=== PATIENT | female | born 1980 | race Caucasian/White ===

== ENCOUNTER 2019-09-30 13:53 | Emergency (ER) | payer OTHER ==
[2019-09-30 14:02] VITALS: BP 111/78; PULSE 106; RESP 18; TEMP 98.1
--- NOTE | 2019-09-30 14:26 | ED ---
Lower Extremity Injury HPI - General Chief Complaint: Extremity Injury, Lower Stated Complaint: left ankle injury Time Seen by Provider: 09/30/19 14:07 Source: patient Mode of arrival: wheelchair Limitations: no limitations - History of Present Illness Initial Comments: 39-year-old female presenting today for chief complaint of left ankle pain after fall. Patient states is prior to arrival she was walking falling off the porch she states she simply lost her balance and tripped. Patient states she extended her left leg to catch herself, she states that the ankle took most of the fall. She states she is not of any injuries or contact the ground with her head neck she denies any mid or lower back pain. Patient to the injury of the upper extremities. Patient denies any pain with anemia denies any hip pain. Patient states there is localized swelling over the lateral aspect of the left ankle with pain that radiates from the left side to the right of the ankle. Patient denies any bruising and no dislocation. Patient states she felt like she heard a crunch. Remaining review of system negative upon arrival patient refuses to weight-bear on the left extremity. Denies any other complaints or injuries. - Related Data Home Medications Medication Instructions Recorded Confirmed Ondansetron HCl [Zofran] 8 mg PO TID PRN 07/23/19 09/17/19 Butalb/APAP/Caff 50-325-40Mg 2 tab PO Q6H PRN 08/06/19 09/17/19 [Fioricet 50-325-40] Allergies Allergy/AdvReac Type Severity Reaction Status Date / Time Penicillins Allergy Unknown Verified 09/30/19 14:02 Review of Systems ROS Statement: Those systems with pertinent positive or pertinent negative responses have been documented in the HPI. ROS Other: All systems not noted in ROS Statement are negative. Past Medical History Past Medical History: Cancer Additional Past Medical History / Comment(s): breast cancer History of Any Multi-Drug Resistant Organisms: None Reported Past Surgical History: No Surgical Hx Reported Additional Past Surgical History / Comment(s): cyst removal Past Psychological History: No Psychological Hx Reported Smoking Status: Current every day smoker Past Alcohol Use History: None Reported Past Drug Use History: None Reported General Exam - General Exam Comments Initial Comments: General: The patient is awake and alert, in no distress, and does not appear acutely ill. Eye: +3 mm pupils are equal, round and reactive to light, extra-ocular movements are intact. No nystagmus. There is normal conjunctiva bilaterally. No signs of icterus. Ears, nose, mouth and throat: There are moist mucous membranes and no oral lesions. No raccoon or Laboy sign or evidence of scalp abdomen areas consistent with trauma. Neck: The neck is supple, there is no tenderness or JVD. Cardiovascular: There is a regular rate and rhythm. No murmur, rub or gallop is appreciated. Respiratory: Lungs are clear to auscultation, respirations are non-labored, breath sounds are equal. No wheezes, stridor, rales, or rhonchi. Musculoskeletal: Upon inspection of the ankles bilaterally there is no soft tissue swelling over the lateral malleolus. There is no ecchymosis. Patient is point localized tenderness over both the medial and lateral malleolus. Patient has no tenderness to palpation of the proximal tibia and fibula. Normal ROM, no tenderness at the hips or knees b/l. Strength 5/5 preserved distal and proximal to injury site. Sensation intact proximal and distal to injury site. DP pulses equal bilaterally 2+. Neurological: A&O x 3. CN II-XII intact grossly, There are no obvious motor or sensory deficits. Coordination appears grossly intact. Speech is normal. Skin: Skin is warm and dry and no rashes or lesions are noted. Psychiatric: Cooperative, appropriate mood & affect, normal judgment. Limitations: no limitations Course Vital Signs 09/30/19 13:58 Temperature 98.1 F Pulse Rate 106 H Respiratory 18 Rate Blood Pressure 111/78 O2 Sat by Pulse 98 Oximetry Medical Decision Making - Medical Decision Making 39-year-old female presenting today for chief complaint of left ankle pain. Patient states ankle pain began after fall. Patient is neurovascularly intact. There is soft tissue swelling of the lateral malleolus. There is no foot or proximal tibia or fibula pain. Compartments are soft and compressible. Strength intact no evidence of foot drop. Imaging studies were obtained revealing no acute osseous process. I did personally review the imaging studies. I discussed the case with attending provider Dr. Parkinson we feel this time patient is stable for discharge with ankle brace crutches for comfort and primary care follow-up. Voice instruction the importance of orthopedic follow- up if symptoms are persisting greater than 7-10 days patient verbalized understanding and was discharged appearing well. Disposition Clinical Impression: Left ankle sprain, Fall, Left ankle pain Disposition: HOME SELF-CARE Condition: Good Instructions (If sedation given, give patient instructions): Ankle Sprain (ED) Additional Instructions: Please use medication as discussed. Please follow-up with family doctor in the next 2 days, if symptoms persisting greater than 1 week I recommend orthopedic evaluation. Please use crutches for comfort and [place] including. Please return to emergency room if the symptoms increase or worsen or for any other concerns. Is patient prescribed a controlled substance at d/c from ED?: No Referrals: Carrie Araya MD [Primary Care Provider] - 1-2 days Abhinav Irwin MD [STAFF PHYSICIAN] - 1-2 days Time of Disposition: 15:39
--- NOTE | 2019-09-30 15:26 | XR ---
Left ankle HISTORY: Trauma, pain and swelling 3 views the left ankle Soft tissue swelling is noted. Bone mineralization, joint spaces and alignment are maintained. IMPRESSION: No radiographically apparent fracture or dislocation, follow-up as indicated.
[2019-09-30] MEDS ORDERED: ACET/COD 300 MG/30 MG STARTER PACK 6 TAB BTL PO STA (15:38)
== END 2019-09-30 16:13 | disposition home or self-care (01) ==
LOC: EC 13:53
DX: S93.402A Sprain of unspecified ligament of left ankle, initial encounter (principal); F17.200 Nicotine dependence, unspecified, uncomplicated; Z88.0 Allergy status to penicillin; Z85.3 Personal history of malignant neoplasm of breast; W13.0XXA Fall from, out of or through balcony, initial encounter; Y93.01 Activity, walking, marching and hiking; Y92.89 Other specified places as the place of occurrence of the external cause
CPT/HCPCS: 73610; 99283; 29515; L4350

== ENCOUNTER → 2019-10-10 | Outpatient (CLI) | payer OTHER ==
--- NOTE | 2019-10-10 11:47 | MR ---
EXAMINATION TYPE: MR brain wo/w con DATE OF EXAM: 10/10/2019 11:00 AM COMPARISON: NONE HISTORY: Breast Cancer / Dizziness TECHNIQUE: Multiplanar, multiecho imaging of the brain was obtained with and without intravenous adm inistration of 10 mL intravenous Gadavist. FINDINGS: Midline structures are unremarkable. There is a normal craniocervical junction. Echoplanar diffusion imaging is normal. There are normal vascular flow voids. The orbits are normal. There is no evidence of a CP angle mass lesion. The sulci signal within the right mastoid air cells which may reflect acute mastoiditis. There is no acute intracranial lesion, mass effect or midline shift. I do not see evidence of intracranial blood. Following intravenous administration of gadolinium, I do not see evidence of abnormal enhancement. IMPRESSION: 1. NO ACUTE INTRACRANIAL ABNORMALITY. 2. MILD RIGHT-SIDED MASTOIDITIS. 3. NO EVIDENCE OF INTRACRANIAL METASTASES AT THIS TIME.
== END | disposition home or self-care (01) ==
LOC: RADMRIMAIN 09:23
PROVIDERS: ATTEND Internal Medicine Hematology & Oncology
DX: C50.811 Malignant neoplasm of overlapping sites of right female breast (principal); R42 Dizziness and giddiness
CPT/HCPCS: 70553; A9585

== ENCOUNTER 2019-10-22 14:51 | Inpatient (IN) | payer OTHER ==
--- NOTE | 2019-10-22 16:52 | ED ---
Dizziness HPI - General Chief Complaint: Dizziness Stated Complaint: Dizziness Chemo Pt Time Seen by Provider: 10/22/19 15:20 Source: patient, family Mode of arrival: wheelchair Limitations: no limitations - History of Present Illness Initial Comments: The patient is a 39-year-old female with history of triple negative right-sided breast cancer who presents to the emergency room in with reported vertiginous symptoms. She reports that she has had these episodes of vertigo for approximately the past month. She states that she sees Dr. Zepeda from oncology. She is on weekly Taxol with carboplatin and every 3 weeks. She is currently on her 6 week of this regimen. States that since the regimen has changed she has begun having significant episodes of room spinning. They do affect her when she stands up as well as when she is laying flat during the middle the night and will awake her from sleep. Her primary care doctor gave her meclizine. Her oncologist [facility] for an MRI of her brain which was done on the . He did demonstrate mastoiditis. She is on 2 rounds of antibiotics and steroids for which she states she was having extreme upset stomach when she took these medications. States she's previous he tolerated in the past and so does believe that her symptoms are more likely due to the chemo drugs. The episodes have become more debilitating. States that she gets so weak to where she cannot use her upper extremities. She was in the practitioners office today. She was complaining of the symptoms may send her me that he over the emergency room for further evaluation. She does admit to associated blurred vision when episodes come on. States no current vision changes. There is been no confusion or speech issues. She denies any continued weakness in her extremity. Denies chest pain or shortness of breath. No ripping or tearing sensation to her back. Denies any abdominal pain. Does admit to nausea without vomiting. There are no alleviating, precipitating or modifying factors - Related Data Home Medications Medication Instructions Recorded Confirmed Butalb/APAP/Caff 50-325-40Mg 1 tab PO Q6H PRN 08/06/19 10/23/19 [Fioricet 50-325-40] Meclizine HCl 12.5 mg PO TID PRN 10/15/19 10/23/19 Lidocaine Viscous 2% [Xylocaine 10 ml MUCOUS MEM QID PRN 10/23/19 10/23/19 Viscous] Loratadine [Claritin] 10 mg PO DAILY PRN 10/23/19 10/23/19 Ondansetron HCl [Zofran] 4 mg PO Q6H PRN 10/23/19 10/23/19 Previous Rx's Medication Instructions Recorded Folic Acid 1 mg PO DAILY #30 tablet 10/26/19 Multivitamins, Thera [Multivitamin] 1 tab PO DAILY #30 tablet 10/26/19 Thiamine [Vitamin B-1] 100 mg PO DAILY #30 tablet 10/26/19 levETIRAcetam [Keppra] 500 mg PO Q12HR #60 tab 10/26/19 Allergies Allergy/AdvReac Type Severity Reaction Status Date / Time Penicillins Allergy Unknown Verified 10/23/19 08:22 Review of Systems ROS Statement: Those systems with pertinent positive or pertinent negative responses have been documented in the HPI. ROS Other: All systems not noted in ROS Statement are negative. Past Medical History Past Medical History: Cancer Additional Past Medical History / Comment(s): breast cancer History of Any Multi-Drug Resistant Organisms: None Reported Past Surgical History: No Surgical Hx Reported Additional Past Surgical History / Comment(s): cyst removal Past Psychological History: No Psychological Hx Reported Smoking Status: Former smoker Past Alcohol Use History: None Reported Past Drug Use History: None Reported - Past Family History Mother Family Medical History: Hypertension Father Family Medical History: Myocardial Infarction ([place]) General Exam Limitations: no limitations General appearance: alert, in no apparent distress Head exam: Present: atraumatic, normocephalic, normal inspection Eye exam: Present: normal appearance, PERRL, EOMI, nystagmus (horizontal). Absent: scleral icterus, conjunctival injection, periorbital swelling ENT exam: Present: normal exam, mucous membranes moist Respiratory exam: Present: normal lung sounds bilaterally. Absent: respiratory distress, wheezes, rales, rhonchi, stridor Cardiovascular Exam: Present: regular rate, normal rhythm, normal heart sounds. Absent: systolic murmur, diastolic murmur, rubs, gallop, clicks GI/Abdominal exam: Present: soft, normal bowel sounds. Absent: distended, tenderness, guarding, rebound, rigid Extremities exam: Present: normal inspection, full ROM, normal capillary refill, other (equal fancy wire drawer strength). Absent: tenderness, pedal edema, joint swelling, calf tenderness Neurological exam: Present: alert, oriented X3, CN II-XII intact, normal gait, other (no dysdiodokinesia, negative pronator drift, no truncal ataxia) Psychiatric exam: Present: depressed Skin exam: Present: warm, dry, intact, normal color. Absent: rash Course Vital Signs 10/22/19 10/22/19 10/22/19 15:19 19:19 19:59 Temperature 98.1 F 97.3 F L Pulse Rate 97 86 72 Respiratory 18 18 18 Rate Blood Pressure 131/87 130/82 147/93 O2 Sat by Pulse 99 98 100 Oximetry 10/22/19 20:08 Temperature 98.0 F Pulse Rate 104 H Respiratory 18 Rate Blood Pressure 130/84 O2 Sat by Pulse 95 Oximetry EKG Findings - EKG Comments: EKG Findings:: EKG demonstrates a normal sinus rhythm with a ventricular rate of 94. IA interval 128. QRS 70. QTC 445. No acute ST segment elevations. Q wave in lead 3. Repeat EKG at 2103 demonstrates a sinus bradycardia cardio with a ventricular rate of 54. IA interval 122. QRS E4. QTC of 460. No acute ST segment elevations or depressions concerning for ischemic changes Medical Decision Making - Medical Decision Making Upon arrival the patient is placed into room 17. A thorough history and physical exam is performed. Peripheral IV was established. The patient was given a liter bolus of normal saline, 4 mg of Zofran and 5 mg of Valium for her vertiginous symptoms. I recommended laboratory studies and a CT of the patient's brain. Lab studies are demonstrating a bicytopenia with a white blood cell count of 3.2 and hemoglobin of 10.9. Glucose elevated at 172. Lactic acid is 3.3. Urinalysis is negative. I did provide the patient with a second liter of normal saline. She is requesting a second dose of Valium for which I did provide her. I then started on 100 mL/h. CT angiography of the brain demonstrates no significant abnormality. I discussed this with the patient. I did recommend hospital admission for evaluation by neurology and oncology. The patient agreed to this. Discussed case with Dr. Santana who accepted admission. The patient was then transferred to floor in stable condition - Lab Data Result diagrams: 10/26/19 06:15 10/26/19 06:15 Lab Results 10/22/19 10/22/19 10/22/19 Range/Units 17:08 17:45 17:45 WBC 3.2 L (3.8-10.6) k/uL RBC 3.24 L (3.80-5.40) m/uL Hgb 10.9 L (11.4-16.0) gm/dL Hct 32.9 L (34.0-46.0) % MCV 101.6 H (80.0-100.0) fL MCH 33.7 (25.0-35.0) pg MCHC 33.2 (31.0-37.0) g/dL RDW 16.5 H (11.5-15.5) % Plt Count 436 (150-450) k/uL Neutrophils % 76 % Lymphocytes % 19 % Monocytes % 3 % Eosinophils % 0 % Basophils % 0 % Neutrophils # 2.4 (1.3-7.7) k/uL Lymphocytes # 0.6 L (1.0-4.8) k/uL Monocytes # 0.1 (0-1.0) k/uL Eosinophils # 0.0 (0-0.7) k/uL Basophils # 0.0 (0-0.2) k/uL Anisocytosis Slight Macrocytosis Slight Sodium 136 L (137-145) mmol/L Potassium 4.4 (3.5-5.1) mmol/L Chloride 102 (98-107) mmol/L Carbon Dioxide 22 (22-30) mmol/L Anion Gap 12 mmol/L BUN 12 (7-17) mg/dL Creatinine 0.60 (0.52-1.04) mg/dL Est GFR (CKD-EPI)AfAm >90 (>60 ml/min/1.73 sqM) Est GFR (CKD-EPI)NonAf >90 (>60 ml/min/1.73 sqM) Glucose 172 H (74-99) mg/dL POC Glucose (mg/dL) (75-99) mg/dL POC Glu Clinical Researcher ID Lactic Ac Sepsis Rflx Plasma Lactic Acid Baltazar (0.7-2.0) mmol/L Calcium 9.1 (8.4-10.2) mg/dL Total Bilirubin 0.4 (0.2-1.3) mg/dL AST 41 H (14-36) U/L ALT 57 H (4-34) U/L Alkaline Phosphatase 98 (38-126) U/L Troponin I (0.000-0.034) ng/mL Total Protein 6.9 (6.3-8.2) g/dL Albumin 4.4 (3.5-5.0) g/dL CA 15-3 Antigen (0.0-32.3) U/mL CA 27-29 (0.0-38.5) U/mL Vitamin B12 (200.0-944.0) pg/mL Folate ng/mL HCG, Qual Not Detected Urine Color Light Yellow Urine Appearance Clear (Clear) Urine pH 6.0 (5.0-8.0) Ur Specific [place] 1.014 (1.001-1.035) Urine Protein Negative (Negative) Urine Glucose (UA) Negative (Negative) Urine Ketones Negative (Negative) Urine Blood Negative (Negative) Urine Nitrite Negative (Negative) Urine Bilirubin Negative (Negative) Urine Urobilinogen <2.0 (<2.0) mg/dL Ur Leukocyte Esterase Negative (Negative) CSF Tube Number CSF Volume CSF Appearance CSF Color CSF RBC (0-10) u/L CSF Tot Nucleated Cells (0-5) u/L CSF Mononuclear WBCs % % CSF Polynuclear WBCs % % CSF Glucose (40-70) mg/dL CSF Total Protein (12-60) mg/dL 10/22/19 10/22/19 10/22/19 Range/Units 17:45 17:45 17:45 WBC (3.8-10.6) k/uL RBC (3.80-5.40) m/uL Hgb (11.4-16.0) gm/dL Hct (34.0-46.0) % MCV (80.0-100.0) fL MCH (25.0-35.0) pg MCHC (31.0-37.0) g/dL RDW (11.5-15.5) % Plt Count (150-450) k/uL Neutrophils % % Lymphocytes % % Monocytes % % Eosinophils % % Basophils % % Neutrophils # (1.3-7.7) k/uL Lymphocytes # (1.0-4.8) k/uL Monocytes # (0-1.0) k/uL Eosinophils # (0-0.7) k/uL Basophils # (0-0.2) k/uL Anisocytosis Macrocytosis Sodium (137-145) mmol/L Potassium (3.5-5.1) mmol/L Chloride (98-107) mmol/L Carbon Dioxide (22-30) mmol/L Anion Gap mmol/L BUN (7-17) mg/dL Creatinine (0.52-1.04) mg/dL Est GFR (CKD-EPI)AfAm (>60 ml/min/1.73 sqM) Est GFR (CKD-EPI)NonAf (>60 ml/min/1.73 sqM) Glucose (74-99) mg/dL POC Glucose (mg/dL) (75-99) mg/dL POC Glu Clinical Researcher ID Lactic Ac Sepsis Rflx Plasma Lactic Acid Baltazar 3.3 H* (0.7-2.0) mmol/L Calcium (8.4-10.2) mg/dL Total Bilirubin (0.2-1.3) mg/dL AST (14-36) U/L ALT (4-34) U/L Alkaline Phosphatase (38-126) U/L Troponin I <0.012 (0.000-0.034) ng/mL Total Protein (6.3-8.2) g/dL Albumin (3.5-5.0) g/dL CA 15-3 Antigen 16.6 (0.0-32.3) U/mL CA 27-29 (0.0-38.5) U/mL Vitamin B12 (200.0-944.0) pg/mL Folate ng/mL HCG, Qual Urine Color Urine Appearance (Clear) Urine pH (5.0-8.0) Ur Specific [place] (1.001-1.035) Urine Protein (Negative) Urine Glucose (UA) (Negative) Urine Ketones (Negative) Urine Blood (Negative) Urine Nitrite (Negative) Urine Bilirubin (Negative) Urine Urobilinogen (<2.0) mg/dL Ur Leukocyte Esterase (Negative) CSF Tube Number CSF Volume CSF Appearance CSF Color CSF RBC (0-10) u/L CSF Tot Nucleated Cells (0-5) u/L CSF Mononuclear WBCs % % CSF Polynuclear WBCs % % CSF Glucose (40-70) mg/dL CSF Total Protein (12-60) mg/dL 03/12/20 03/12/20 03/12/20 Range/Units 17:45 18:26 21:33 WBC (3.8-10.6) k/uL RBC (3.80-5.40) m/uL Hgb (11.4-16.0) gm/dL Hct (34.0-46.0) % MCV (80.0-100.0) fL MCH (25.0-35.0) pg MCHC (31.0-37.0) g/dL RDW (11.5-15.5) % Plt Count (150-450) k/uL Neutrophils % % Lymphocytes % % Monocytes % % Eosinophils % % Basophils % % Neutrophils # (1.3-7.7) k/uL Lymphocytes # (1.0-4.8) k/uL Monocytes # (0-1.0) k/uL Eosinophils # (0-0.7) k/uL Basophils # (0-0.2) k/uL Anisocytosis Macrocytosis Sodium (137-145) mmol/L Potassium (3.5-5.1) mmol/L Chloride (98-107) mmol/L Carbon Dioxide (22-30) mmol/L Anion Gap mmol/L BUN (7-17) mg/dL Creatinine (0.52-1.04) mg/dL Est GFR (CKD-EPI)AfAm (>60 ml/min/1.73 sqM) Est GFR (CKD-EPI)NonAf (>60 ml/min/1.73 sqM) Glucose (74-99) mg/dL POC Glucose (mg/dL) (75-99) mg/dL POC Glu Clinical Researcher ID Lactic Ac Sepsis Rflx Y Plasma Lactic Acid Bal[place]zar 2.0 (0.7-2.0) mmol/L Calcium (8.4-10.2) mg/dL Total Bilirubin (0.2-1.3) mg/dL AST (14-36) U/L ALT (4-34) U/L Alkaline Phosphatase (38-126) U/L Troponin I (0.000-0.034) ng/mL Total Protein (6.3-8.2) g/dL Albumin (3.5-5.0) g/dL CA 15-3 Antigen (0.0-32.3) U/mL CA 27-29 23.4 (0.0-38.5) U/mL Vitamin B12 (200.0-944.0) pg/mL Folate ng/mL HCG, Qual Urine Color Urine Appearance (Clear) Urine pH (5.0-8.0) Ur Specific [place] (1.001-1.035) Urine Protein (Negative) Urine Glucose (UA) (Negative) Urine Ketones (Negative) Urine Blood (Negative) Urine Nitrite (Negative) Urine Bilirubin (Negative) Urine Urobilinogen (<2.0) mg/dL Ur Leukocyte Esterase (Negative) CSF Tube Number CSF Volume CSF Appearance CSF Color CSF RBC (0-10) u/L CSF Tot Nucleated Cells (0-5) u/L CSF Mononuclear WBCs % % CSF Polynuclear WBCs % % CSF Glucose (40-70) mg/dL CSF Total Protein (12-60) mg/dL 10/23/19 10/23/19 10/23/19 Range/Units 03:14 03:14 03:33 WBC 4.6 (3.8-10.6) k/uL RBC 2.91 L (3.80-5.40) m/uL Hgb 9.8 L (11.4-16.0) gm/dL Hct 29.6 L (34.0-46.0) % MCV 101.8 H (80.0-100.0) fL MCH 33.8 (25.0-35.0) pg MCHC 33.2 (31.0-37.0) g/dL RDW 16.8 H (11.5-15.5) % Plt Count 434 (150-450) k/uL Neutrophils % 56 % Lymphocytes % 35 % Monocytes % 6 % Eosinophils % 0 % Basophils % 0 % Neutrophils # 2.6 (1.3-7.7) k/uL Lymphocytes # 1.6 (1.0-4.8) k/uL Monocytes # 0.3 (0-1.0) k/uL Eosinophils # 0.0 (0-0.7) k/uL Basophils # 0.0 (0-0.2) k/uL Anisocytosis Slight Macrocytosis Moderate Sodium 136 L (137-145) mmol/L Potassium 4.6 (3.5-5.1) mmol/L Chloride 106 (98-107) mmol/L Carbon Dioxide 24 (22-30) mmol/L Anion Gap 6 mmol/L BUN 11 (7-17) mg/dL Creatinine 0.60 (0.52-1.04) mg/dL Est GFR (CKD-EPI)AfAm >90 (>60 ml/min/1.73 sqM) Est GFR (CKD-EPI)NonAf >90 (>60 ml/min/1.73 sqM) Glucose 122 H (74-99) mg/dL POC Glucose (mg/dL) 139 H (75-99) mg/dL POC Glu Clinical Researcher ID Beckie Pryor Lactic Ac Sepsis Rflx Plasma Lactic Acid Baltazar (0.7-2.0) mmol/L Calcium 8.7 (8.4-10.2) mg/dL Total Bilirubin 0.2 (0.2-1.3) mg/dL AST 27 (14-36) U/L ALT 46 H (4-34) U/L Alkaline Phosphatase 79 (38-126) U/L Troponin I (0.000-0.034) ng/mL Total Protein 6.0 L (6.3-8.2) g/dL Albumin 3.7 (3.5-5.0) g/dL CA 15-3 Antigen (0.0-32.3) U/mL CA 27-29 (0.0-38.5) U/mL Vitamin B12 552.0 (200.0-944.0) pg/mL Folate 23.0 ng/mL HCG, Qual Urine Color Urine Appearance (Clear) Urine pH (5.0-8.0) Ur Specific [place] (1.001-1.035) Urine Protein (Negative) Urine Glucose (UA) (Negative) Urine Ketones (Negative) Urine Blood (Negative) Urine Nitrite (Negative) Urine Bilirubin (Negative) Urine Urobilinogen (<2.0) mg/dL Ur Leukocyte Esterase (Negative) CSF Tube Number CSF Volume CSF Appearance CSF Color CSF RBC (0-10) u/L CSF Tot Nucleated Cells (0-5) u/L CSF Mononuclear WBCs % % CSF Polynuclear WBCs % % CSF Glucose (40-70) mg/dL CSF Total Protein (12-60) mg/dL 10/23/19 Range/Units 12:45 WBC (3.8-10.6) k/uL RBC (3.80-5.40) m/uL Hgb (11.4-16.0) gm/dL Hct (34.0-46.0) % MCV (80.0-100.0) fL MCH (25.0-35.0) pg MCHC (31.0-37.0) g/dL RDW (11.5-15.5) % Plt Count (150-450) k/uL Neutrophils % % Lymphocytes % % Monocytes % % Eosinophils % % Basophils % % Neutrophils # (1.3-7.7) k/uL Lymphocytes # (1.0-4.8) k/uL Monocytes # (0-1.0) k/uL Eosinophils # (0-0.7) k/uL Basophils # (0-0.2) k/uL Anisocytosis Macrocytosis Sodium (137-145) mmol/L Potassium (3.5-5.1) mmol/L Chloride (98-107) mmol/L Carbon Dioxide (22-30) mmol/L Anion Gap mmol/L BUN (7-17) mg/dL Creatinine (0.52-1.04) mg/dL Est GFR (CKD-EPI)AfAm (>60 ml/min/1.73 sqM) Est GFR (CKD-EPI)NonAf (>60 ml/min/1.73 sqM) Glucose (74-99) mg/dL POC Glucose (mg/dL) (75-99) mg/dL POC Glu Clinical Researcher ID Lactic Ac Sepsis Rflx Plasma Lactic Acid Baltazar (0.7-2.0) mmol/L Calcium (8.4-10.2) mg/dL Total Bilirubin (0.2-1.3) mg/dL AST (14-36) U/L ALT (4-34) U/L Alkaline Phosphatase (38-126) U/L Troponin I (0.000-0.034) ng/mL Total Protein (6.3-8.2) g/dL Albumin (3.5-5.0) g/dL CA 15-3 Antigen (0.0-32.3) U/mL CA 27-29 (0.0-38.5) U/mL Vitamin B12 (200.0-944.0) pg/mL Folate ng/mL HCG, Qual Urine Color Urine Appearance (Clear) Urine pH (5.0-8.0) Ur Specific [place] (1.001-1.035) Urine Protein (Negative) Urine Glucose (UA) (Negative) Urine Ketones (Negative) Urine Blood (Negative) Urine Nitrite (Negative) Urine Bilirubin (Negative) Urine Urobilinogen (<2.0) mg/dL Ur Leukocyte Esterase (Negative) CSF Tube Number 3 CSF Volume 4.0 CSF Appearance Clear CSF Color Colorless CSF RBC 1 (0-10) u/L CSF Tot Nucleated Cells 6 H (0-5) u/L CSF Mononuclear WBCs % 100 % CSF Polynuclear WBCs % 0 % CSF Glucose 49 (40-70) mg/dL CSF Total Protein 34 (12-60) mg/dL Disposition Clinical Impression: Vertigo, Breast cancer, Chemotherapy induced neutropenia, Lactic acidosis Disposition: ADMITTED IP TO THIS HOSP Condition: Stable Is patient prescribed a controlled substance at d/c from ED?: No Decision to Admit Reason: Admit from EC Decision Date: 10/22/19 Decision Time: 20:43
[2019-10-22] MEDS ORDERED: SODIUM CHLORIDE 0.9% 1,000 ML IV STA (17:08)
[2019-10-22] MEDS ORDERED: DIAZEPAM 5 MG/ML 2 ML INJ IVP STA ×2 (17:08→20:01)
[2019-10-22] MEDS ORDERED: ONDANSETRON 4 MG/2 ML VIAL IVP STA (17:21)
[2019-10-22 18:06] LABS: Anisocytosis Slight; Basophils % (A) 0 %; Eosinophils % (A) 0 %; HCT 32.9 % (34.0-46.0); HGB 10.9 gm/dL (11.4-16.0); Lymphocytes # (A) 0.6 k/uL (1.0-4.8); Lymphocytes % (A) 19 %; MCH 33.7 pg (25.0-35.0); MCHC 33.2 g/dL (31.0-37.0); MCV 101.6 fL (80.0-100.0); Macrocytosis Slight; Mean Platelet Volume 7.9; Monocytes # (A) 0.1 k/uL (0-1.0); Monocytes % (A) 3 %; Neutrophils # (A) 2.4 k/uL (1.3-7.7); Neutrophils % (A) 76 %; Platelet Count 436 k/uL (150-450); RBC 3.24 m/uL (3.80-5.40); RDW 16.5 % (11.5-15.5); WBC 3.2 k/uL (3.8-10.6)
[2019-10-22 18:13] LABS: ALT 57 U/L (4-34); AST 41 U/L (14-36); African American GFR (CKD) >90 (>60 ml/min/1.73 sqM); Albumin 4.4 g/dL (3.5-5.0); Alkaline Phosphatase 98 U/L (38-126); Anion Gap 12 mmol/L; Blood Urea Nitrogen 12 mg/dL (7-17); Calcium 9.1 mg/dL (8.4-10.2); Carbon Dioxide 22 mmol/L (22-30); Chloride 102 mmol/L (98-107); Glucose 172 mg/dL (74-99); Non-African American GFR(CKD) >90 (>60 ml/min/1.73 sqM); Potassium 4.4 mmol/L (3.5-5.1); Sodium 136 mmol/L (137-145); Total Bilirubin 0.4 mg/dL (0.2-1.3); Total Protein 6.9 g/dL (6.3-8.2)
[2019-10-22 18:57] LABS: HCG,Qualitative Serum Not Detected
[2019-10-22] MEDS ORDERED: SODIUM CHLORIDE 0.9% 1,000 ML IV ONE (19:00)
[2019-10-22 20:30] LABS: Appearance,Urine Clear (Clear); Bilirubin,Urine Negative (Negative); Blood,Urine Negative (Negative); Color,Urine Light Yellow; Glucose,Urine (UA) Negative (Negative); Ketones,Urine Negative (Negative); Leukocyte Esterase,Urine Negative (Negative); Nitrite,Urine Negative (Negative); Protein,Urine Negative (Negative); Specific Gravity,Urine 1.014 (1.001-1.035); Urobilinogen,Urine <2.0 mg/dL (<2.0)
--- NOTE | 2019-10-22 20:38 | CT ---
EXAMINATION TYPE: CT angio head neck with contrast with 3-D reconstructions DATE OF EXAM: 10/22/2019 HISTORY: Dizziness, vertigo. Hx breast ca. COMPARISON: None CT DLP: 805.9 mGycm. Automated Exposure Control for Dose Reduction was Utilized. TECHNIQUE: CTA scan of the neck is performed with IV Contrast, patient injected with 100 mL of Isovu e 370, axial images are obtained, coronal and sagittal reformatted images are reviewed. Three-D recon structed images are created on an independent workstation and reviewed. NECK CTA FINDINGS CAROTID ARTERIAL SYSTEMS: There is tortuosity of the right CCA and right ICA and right ECA, but no hemodynamically significant stenosis, filling defect, or dissection. There is tortuosity of the left CCA and left ICA and left ECA, but no hemodynamically significant marya nosis, filling defect, or dissection. VERTEBRAL ARTERIAL SYSTEMS: The right and left vertebral artery are widely patent throughout their cervical courses. OTHER: There is moderate cardiomegaly with panchamber enlargement. No other incidentals. HEAD CTA FINDINGS The anterior and posterior arterial circulation are negative for hemodynamically significant stenosis or filling defect or aneurysm. OTHER: The contrast enhancement pattern is negative. No incidental findings. IMPRESSION: No significant abnormality is seen.
[2019-10-22] MEDS ORDERED: NALOXONE 0.4 MG/ML 1 ML VIAL IV PRN (20:43)
[2019-10-22] MEDS ORDERED: SODIUM CHLORIDE 0.9% 1,000 ML IV SCH (20:45)
[2019-10-22] MEDS ORDERED: BUTALB/APAP/CAFF 50-325-40MG TAB PO PRN (20:46)
[2019-10-22] MEDS ORDERED: BUTALB/APAP/CAFF 50-325-40MG TAB PO STA (21:44)
[2019-10-22] MEDS: PANTOPRAZOLE 40 MG/10 ML VIAL IVP SCH (22:55)
[2019-10-22] MEDS: Acetaminophen-Codeine 300-30mg TAB PO SCH (22:58)
[2019-10-22] MEDS: MECLIZINE 12.5 MG TAB PO SCH (23:51)
[2019-10-22] MEDS: SODIUM CHLORIDE 0.9% 1,000 ML with MVI, ADULT NO.4 WITH VIT K 10 ML, THIAMINE 100 MG, F... IV SCH ×4 (23:51)
--- NOTE | 2019-10-23 01:11 | HP ---
HISTORY AND PHYSICAL DATE OF SERVICE: 10/22/2019 CHIEF COMPLAINT: Dizziness and weakness. HISTORY OF PRESENT ILLNESS: This 39-year-old woman with a past medical history of multiple medical problems including history of triple negative breast cancer, history of remote history of nicotine dependence, being followed by Dr. Araya in the outpatient setting also receiving chemotherapy for the breast cancer. The patient is getting weekly Taxol and carboplatin. The patient has multiple symptomatology including dizziness and numbness. The patient also had vertigo. Patient was evaluated previously and the patient also had an MRI recently last month which showed mild right-sided mastoiditis. Patient given some antibiotic for that, but subsequently patient had vomiting and the patient had significant paresthesias and significant vertigo, dizziness, weakness. The patient came to [facility] and was admitted for further evaluation and treatment. There is no history of fever, rigors. No history of headache loss of consciousness, seizures at this time. PAST MEDICAL HISTORY: Triple negative breast cancer on chemotherapy, cyst removal. MEDICATIONS: 1. Zofran 8 mg t.i.d. p.r.n. 2. Meclizine 12.5 mg b.i.d. 3. Butalbital 1-2 tablets q.6h p.r.n. 4. Tylenol 1 p.o. q.i.d. ALLERGIES: PENICILLIN. FAMILY HISTORY: No history of heart disease or strokes in the family. SOCIAL HISTORY: Previous history of smoking. REVIEW OF SYSTEMS: ENT mentioned earlier. CARDIOVASCULAR: No angina or palpitations. RESPIRATIONS: No cough. GI no nausea or vomiting. no dysuria or hematuria. NERVOUS SYSTEM: No numbness or weakness. ALLERGY/IMMUNOLOGY: No asthma or hayfever. MUSCULOSKELETAL as mentioned earlier. HEMATOLOGY/ONCOLOGY: No history of anemia. ENDOCRINE: No history of diabetes or hypothyroidism. CONSTITUTIONAL: As mentioned earlier. DERMATOLOGY: Negative. RHEUMATOLOGY: Negative. PSYCHIATRY: As mentioned earlier. PHYSICAL EXAMINATION: The patient is alert and oriented times three. Pulse 104. Blood pressure 138/43. Respirations 18. Temperature 98 degrees, pulse ox 94% on room air. HEENT: Conjunctivae pale. Oral mucosa moist. NECK is no jugular venous distention. No carotid bruit. No lymph node enlargement. CARDIOVASCULAR system: S1, S2. No S3, no S4. RESPIRATORY: Breath sounds diminished in the bases. A few scattered rhonchi. No crackles. ABDOMEN: Soft, obese, nontender. No mass palpable. LEGS no edema and no swelling. NERVOUS SYSTEM: Higher functions as mentioned earlier. Moves all 4 limbs. No focal motor or sensory deficits. SKIN: No ulcer, no rashes and no bleeding. JOINTS: No active deforming arthropathy. LABS: WBC 3.2, hemoglobin 10.9, MCV 101, otherwise sodium 136, and plasma lactic acid 3.3. AST is 41, ALT is 57. HCT is negative. ASSESSMENT: 1. Diffuse weakness, dizziness possibly chemotherapy related. 2. Possible peripheral neuropathy. 3. Possible acute gastritis. 4. Mild bicytopenia secondary chemotherapy. 5. Increased MCV. 6. Hyponatremia. 7. Increased AST/ALT. 8. Elevated plasma lactic 3.3 because of dehydration possibly. 9. History of triple negative breast cancer on chemotherapy. 10.History of cyst removal. 11.Remote history of nicotine dependence. 12.Obesity body mass of 35.7. RECOMMENDATIONS AND DISCUSSION: In this 39-year-old woman who presented with multiple complex medical issues, we will monitor the patient closely, continue the current medications, management and symptomatic treatment. Otherwise, at this time, I would recommend evaluation by Dr. Zepeda. I would also recommend the empiric steroids because of the patient's prolonged symptoms. Otherwise, proton pump inhibitors. DVT prophylaxis. See orders for details. Guarded prognosis because of multiple complex medical issues. Further recommendations to follow. A copy of this dictation being forwarded to Dr. Araya who is the primary physician. MMBEATRISL / GENESISN: [id number] /
--- NOTE | 2019-10-23 01:28 | P.PN ---
Progress Note - Text Progress Note Date: 10/23/19 Seen by HAIRSPRING ADJUSTER earlier in office. Patient with complaints of worsening dizziness, during todays assessment Mariaa HAIRSPRING ADJUSTER reported positive neurological symptoms, left pupil decreased reactivity. MRI report was reviewed with Dr. Arceo. Patient had evidence of right mastoiditis. Patient completed antibiotics and steroids Saturday but, there was no improvement in her symptoms. Upon reviewing vestibular and central causes of vertigo, patient's symptoms more consistent with a central cause besed on H&P of current situation. Her mother is very unsure how to manage patient, pt is very weak, and very uncomfortable. Recommendation was to take patient to the emergency room. Family and patient agreed. Did contact emergency room triage to discuss the case. Gave some of the patient history. Also recommendations for a lumbar puncture. Called and spoke to RN and Patient's sister. Patients sister states patient appears to go into episodes where she says she cant feel arm, or move. Mariaa spoke to emergency project crew worker and provided report and need for LP for further evaluation of possible leptomeningeal disease. This is a concern with the progressive wax and wane of neurological symptoms. I have placed order for LP, with IR, hopefully in am Saturday. Sister is staying night. Full consult will follow in later AM. BELLA Johnson
[2019-10-23] MEDS ORDERED: MAGNESIUM HYDROXIDE 2,400 MG/10 ML CUP PO PRN (02:37)
[2019-10-23 03:37] LABS: Glucose,Whole Blood 139 mg/dL (75-99)
[2019-10-23 03:51] LABS: Anisocytosis Slight; Basophils % (A) 0 %; Eosinophils % (A) 0 %; HCT 29.6 % (34.0-46.0); HGB 9.8 gm/dL (11.4-16.0); Lymphocytes # (A) 1.6 k/uL (1.0-4.8); Lymphocytes % (A) 35 %; MCH 33.8 pg (25.0-35.0); MCHC 33.2 g/dL (31.0-37.0); MCV 101.8 fL (80.0-100.0); Macrocytosis Moderate; Mean Platelet Volume 7.9; Monocytes # (A) 0.3 k/uL (0-1.0); Monocytes % (A) 6 %; Neutrophils # (A) 2.6 k/uL (1.3-7.7); Neutrophils % (A) 56 %; Platelet Count 434 k/uL (150-450); RBC 2.91 m/uL (3.80-5.40); RDW 16.8 % (11.5-15.5); WBC 4.6 k/uL (3.8-10.6)
[2019-10-23 04:03] LABS: ALT 46 U/L (4-34); AST 27 U/L (14-36); African American GFR (CKD) >90 (>60 ml/min/1.73 sqM); Albumin 3.7 g/dL (3.5-5.0); Alkaline Phosphatase 79 U/L (38-126); Anion Gap 6 mmol/L; Blood Urea Nitrogen 11 mg/dL (7-17); Calcium 8.7 mg/dL (8.4-10.2); Carbon Dioxide 24 mmol/L (22-30); Chloride 106 mmol/L (98-107); Glucose 122 mg/dL (74-99); Non-African American GFR(CKD) >90 (>60 ml/min/1.73 sqM); Potassium 4.6 mmol/L (3.5-5.1); Sodium 136 mmol/L (137-145); Total Bilirubin 0.2 mg/dL (0.2-1.3)
[2019-10-23] MEDS ORDERED: LORazepam 2 MG/ML INJ IV PRN ×2 (04:12→05:00)
[2019-10-23] MEDS: PANTOPRAZOLE 40 MG/10 ML VIAL IVP SCH ×2 (07:49→21:00)
[2019-10-23] MEDS: MECLIZINE 12.5 MG TAB PO SCH ×2 (07:50→21:00)
[2019-10-23] MEDS: Acetaminophen-Codeine 300-30mg TAB PO SCH ×4 (07:55→19:52)
--- NOTE | 2019-10-23 11:39 | P.CNNES ---
History of Present Illness Consult date: 10/23/19 Requesting physician: Mariya Mao Reason for Consult: Intractable vertigo History of Present Illness: Patient is a 39-year-old female with history of stage III breast cancer, undergoing chemotherapy for her cancer. Patient states that her chemotherapy started one day before Thanksgiving with 4 rounds of Kelby mycin and Cytoxan that she received every other week 4. Afterwards she started having chemotherapy with carboplatin and Taxol given weekly for 12 sessions. Patient so far has received 8 cycles. Patient states that she receives Cytoxan once every fourth cycle. Patient in made september started noticing significant side effects with generalized weakness, dizzy spells. On 09/29/2019, she fell, spraining her ankle. Patient feels episodes of dizziness, heaviness. She underwent MRI of the brain with and without contrast on 10/10/2019, which revealed no acute process, mild slight right-sided mastoiditis. Patient was given treatment with meclizine, Z-Fredi and prednisone. The dizzy spells have been getting worse, almost occurring every day. She could be moving or even laying still when she gets dizzy. She feels generalized weak. Yesterday she received her chemotherapy with only Taxol. She was in a wheelchair, when she felt weakness in all of her better body. She had a seizure types fell, in which her eyes rolled back and she had a convulsion. Patient was admitted to the hospital. According to her sister, she had numerous spells of seizure-like activity, occurring almost every hour, in which patient feels it coming on, then she has a glassy eye, then she starts twitching of her body. The episode may last for "10 minutes". With one of the episode, she did lose control of bowel and bladder. Patient denies any previous history of seizures or epilepsy. Patient had a normal CTA of head and neck on 10/22/2019, with no aneurysm or stenosis. Bilateral ICA are tortuous, but no dissection. EKG shows normal sinus rhythm. Patient had an MRI of the brain with and without contrast on 10/10/2019, which revealed no acute intracranial abnormality. Mild right-sided mastoiditis. No evidence of intracranial metastatic disease. Patient's blood test shows WBC 4.6 hemoglobin 9.8, platelets 434, and sodium 136 potassium 4.6 renal functions normal. Hepatic panel with mildly elevated ALT 46 and normal AST 27. Review of Systems Generalized weakness, fatigue, dizziness. Denies diplopia, denies any slurred speech facial droop, horses Alvarado dysphagia. Denies any chest pain shortness of breath. And as wheezing or cough. Past Medical History Past Medical History: Cancer Additional Past Medical History / Comment(s): breast cancer History of Any Multi-Drug Resistant Organisms: None Reported Past Surgical History: No Surgical Hx Reported Additional Past Surgical History / Comment(s): cyst removal Past Anesthesia/Blood Transfusion Reactions: No Reported Reaction Past Psychological History: No Psychological Hx Reported Smoking Status: Former smoker Past Alcohol Use History: None Reported Past Drug Use History: None Reported - Past Family History Mother Family Medical History: Hypertension Father Family Medical History: Myocardial Infarction (MS) Medications and Allergies Home Medications Medication Instructions Recorded Confirmed Type Butalb/APAP/Caff 50-325-40Mg 1 tab PO Q6H PRN 08/06/19 10/23/19 History [Fioricet 50-325-40] Meclizine HCl 12.5 mg PO TID PRN 10/15/19 10/23/19 History Lidocaine Viscous 2% [Xylocaine 10 ml MUCOUS MEM QID PRN 10/23/19 10/23/19 History Viscous] Loratadine [Claritin] 10 mg PO DAILY PRN 10/23/19 10/23/19 History Ondansetron HCl [Zofran] 4 mg PO Q6H PRN 10/23/19 10/23/19 History Allergies Allergy/AdvReac Type Severity Reaction Status Date / Time Penicillins Allergy Unknown Verified 10/23/19 08:22 Physical Examination - Vital Signs Vital Signs: Vital Signs Temp Pulse Pulse Resp BP BP Pulse Ox 10/23/19 05:33 98 F 61 17 123/68 96 10/22/19 22:54 97.6 F 92 18 138/86 99 10/22/19 20:08 98.0 F 104 H 18 130/84 95 10/22/19 19:59 97.3 F L 72 18 147/93 100 10/22/19 19:19 86 18 130/82 98 10/22/19 15:19 98.1 F 97 18 131/87 99 Intake and Output 10/22/19 10/23/19 10/23/19 22:59 06:59 14:59 Output Total 3 1 Balance -3 -1 Output: Stool 3 1 Other: Voiding Method Bedside Commode Bedside Commode # Voids 3 1 Weight 86.183 kg 86.183 kg On examination patient is a young female, in no acute distress. She is alert and awake, fully oriented, with normal speech and language function. Attention and concentration fund of knowledge is adequate. On cranial examination pupils are round and reactive to light, visual gerwal are full, extraocular muscles are intact. Face is symmetric, tongue protrudes in the midline. Palatal elevation sensation normal. On muscle strength testing there is no pronator drift and the strength is normal in arms and legs. Reflexes are 1+ and plantars downgoing. Sensory touch is equal. No ataxia for finge r-to-nose testing. Tone and bulk of muscles normal. Gait deferred. No carotid bruit or murmur, peripheral pulses present. Patient has alopecia related to her chemotherapy. Results - Laboratory Findings CBC and BMP: 10/23/19 03:14 10/23/19 03:14 Abnormal Lab Findings: Abnormal Labs 10/22/19 10/22/19 10/22/19 17:45 17:45 17:45 WBC 3.2 L RBC 3.24 L Hgb 10.9 L Hct 32.9 L MCV 101.6 H RDW 16.5 H Lymphocytes # 0.6 L Sodium 136 L Glucose 172 H POC Glucose (mg/dL) Plasma Lactic Acid Baltazar 3.3 H* AST 41 H ALT 57 H Total Protein 10/23/19 10/23/19 10/23/19 03:14 03:14 03:33 WBC RBC 2.91 L Hgb 9.8 L Hct 29.6 L MCV 101.8 H RDW 16.8 H Lymphocytes # Sodium 136 L Glucose 122 H POC Glucose (mg/dL) 139 H Plasma Lactic Acid Baltazar AST ALT 46 H Total Protein 6.0 L Assessment and Plan Assessment: * 39-year-old female with recent diagnosis of stage III breast cancer, undergoing chemotherapy since June 2019, has developed worsening dizzy episodes, with generalized weakness. More recently she has developed seizure- like activity of unclear etiology. MRI of the brain performed recently was negative for any metastatic disease. Suspect vertigo, generalized weakness, a possible side effect of chemotherapeutic agent, either Taxol, or carboplatin. Doubt carcinomatous meningitis with negative recent MRI brain. * Seizure type spells, unclear etiology. Convulsive syncope also in the differential. Plan: * EEG to evaluate for any interictal epileptiform activity. * We will start patient on Keppra, if she continues to have any seizure-like activity. * Patient also going lumbar puncture to rule out meningitis, or carcinomatous meningeal infiltration. * Suggest alternate chemotherapeutic agent, if possible, or short break, if possible. This of course is to be decided by her oncologist with mutual discussion with the patient. * Neurology coverage not available on the weekend.
[2019-10-23 12:11] VITALS: BMI 28.0
--- NOTE | 2019-10-23 13:08 | FL ---
EXAMINATION TYPE: FL guided lumbar puncture LP DATE OF EXAM: 10/23/2019 HISTORY: Breast cancer, seizures, a dizziness Maximal barrier technique was utilized. The skin overlying the L3 transverse process was localized u nder fluoroscopy and the overlying skin prepped and draped. Lidocaine used for local anesthesia. 20 -gauge needle was advanced into the thecal sac under fluoroscopic guidance and cerebrospinal fluid wa s noted to return in the hub of the needle. Approximately 10 cc of cerebrospinal fluid was obtained for analysis in 4 tubes. 2 spot images verified needle placement. 55 seconds fluoroscopy time suppli ed. The patient remained in stable condition, the needle was removed. Hemostasis achieved. No immed iate complication. Impression: Lumbar puncture for cerebrospinal fluid analysis, fluid submitted to pathology.
[2019-10-23 15:19] LABS: Glucose,CSF 49 mg/dL (40-70); Total Protein,CSF 34 mg/dL (12-60)
[2019-10-23] MEDS: SODIUM CHLORIDE 0.9% 1,000 ML with MVI, ADULT NO.4 WITH VIT K 10 ML, THIAMINE 100 MG, F... IV SCH ×4 (15:30)
[2019-10-23 16:10] LABS: Appearance,CSF Clear; CSF Tube Number 3; Red Blood Cell,CSF 1 u/L (0-10)
[2019-10-23 16:12] LABS: Nucleated Cells, CSF 6 u/L (0-5)
--- NOTE | 2019-10-23 18:09 | PN ---
PROGRESS NOTE DATE OF SERVICE: 10/23/2019 This 39-year-old woman who was admitted with dizziness and weakness also had chemotherapy. Leptomeningeal metastases are suspected. The patient also has possible peripheral neuropathy. The patient is being closely monitored. A lumbar puncture was done under fluoroscopy. The fluid report shows 6 nucleated cells at this time. Otherwise, protein was normal at 34. Cytology is being awaited. Patient is being given symptomatic treatment. Past medical history reviewed. REVIEW OF SYSTEMS: CARDIOVASCULAR SYSTEM: No angina, palpitations. RESPIRATORY SYSTEM: As mentioned earlier. GI: As mentioned earlier. : No dysuria or retention. NERVOUS SYSTEM: No numbness, weakness. CURRENT MEDICATIONS: Reviewed. They include: 1. Fioricet p.r.n. 2. Tylenol No. 3 q.i.d. 3. Ativan q.1 p.r.n. 4. Milk of Magnesia. 5. Antivert 12.5 mg b.i.d. 6. Narcan 0.2 p.r.n. 7. Protonix. PHYSICAL EXAMINATION: Patient is alert, oriented x3. Pulse 76, blood pressure 120/63, respirations 16, temperature 97.6, pulse ox 100% on room air. HEENT: Conjunctivae normal. NECK: No jugular venous distention. CARDIOVASCULAR SYSTEM: S1, S2 muffled. RESPIRATORY SYSTEM: Breath sounds diminished at the bases. No rhonchi. No crackles. ABDOMEN: Soft, obese, non-tender. LEGS: No edema. No swelling. NERVOUS SYSTEM: Diffusely weak. No neck stiffness. LABS: WBC 4.6, hemoglobin 9.8, sodium 136. Lumbar puncture noted. ASSESSMENT: 1. Diffuse weakness, possibly chemotherapy-related. Rule out leptomeningeal metastases. 2. Possible peripheral neuropathy. 3. Possible acute gastritis. 4. Mild bicytopenia secondary to chemotherapy. 5. Increased mean corpuscular volume. 6. Hyponatremia. 7. Increased AST, ALT. 8. Elevated plasma lactic acid, 3.3, because of dehydration possibly. 9. History of triple-negative breast cancer, on chemotherapy. 10.History of cyst removal. 11.Remote history of nicotine dependence. 12.Obesity with body mass index of 35.7. 13.FULL CODE. RECOMMENDATIONS AND DISCUSSION: In this 39-year-old woman who presented with multiple complex medical issues, we will monitor the patient closely, continue the current medications, continue with symptomatic treatment. Otherwise at this time I would recommend continuing with the IV hydration. Symptomatic treatment. Lumbar puncture has been done. Closely monitor. See orders for further details. Further recommendations to follow. There is no evidence of any infection currently. Further recommendations to follow. A CT angio was done which showed contrast enhancement pattern was negative. MMODL / IJN: [id number] / MTDDara
--- NOTE | 2019-10-23 19:19 | P.CONS ---
History of Present Illness - Reason for Consult Consult date: 10/23/19 Breast Cancer Requesting physician: Mariya Mao - Chief Complaint Dizziness and intermittent severe weakness - History of Present Illness This is a very nice lady who presented with palpable right axilla mass,she first noticed in February/2019,she was seen by Dr Araya in April/2019 and referred for breast imaging. She had diagnostic mammograms and breast U/S which revealed 4.8x2.6x1.7 cm mass at 12 o'clock right breast,2 adjacent satellite lesions,one measured 2.3cm x1.3x1.1cm and one measured 1.5x1.0x1.1cm,multiple suspicious right axillary nodes,largest measured 3.7cm. On 06/02/2019,she had biopsies of the 3 breast lesions and right axilla,all were positive for grade 2,triple negative breast cancer. On 06/10/2019,echocardiogram revealed normal EF. On 06/18/2019,she had a PET scan which revealed multiple suspicious right axillary nodes,at least 3 suspicious foci in right breast,1 cervical node at level IV,moderate uptake in left axilla (not that suspicious). On 06/18/2019,bilateral breast MRI which identified extensive disease in right breast and axilla and additional 4 mm lesion in upper slight inner right breast and 5 mm lesion in outer central left breast and 12 mm left axilla node. Her Genetic testing came back negative. She had MR guided biopsy of additional right breast lesion on 06/26/2019 which came back negative. She started neoadjuvant dose dense AC on 07/07/2019 and completed 4 cycles on 08/20/2019. On 09/03/2019,she started carboplatin and weekly taxol She feels tired,tolerating treatment well,her nausea is under controlled with current anti emetics,no neuropathy,however,she has been feeling dizzy over the last week and she fell few days ago,no diplopia,unstaidy when she walks and room spinning around her. She was treated for inner ear infection with antibiotics and steroids, and her symptoms persisted. An MRI of the Brain was ordered and there was no evidence of brain mets or other pathology that could relate to her symptoms. Her last treatment with Taxol weekly and every three week Carboplatin was October 14. 10/22/19-Patient seen in office by Mariaa HONG today for acute visit. She received her Taxol at [facility] today. Dizziness happens "every single hour", at least 20 episodes a day, accompanied by GREER which starts a little after, stops when the dizziness stops, she tried to use her hand to wipe her brow but her arm was so heavy that it just fell down, talking can make dizziness worse, she feels hot/cold all the time. She has had N and V, she has been using zofran with no real improvement. Consitpated x 1 week. She feels like she can't breathe properly, worse when she has the dizzy attacks, she is having ocular migranes more frequently this last week, eye balls "hurt", light is painful. Since sta rting carbo/taxol she has had these symptoms, persistent and progressive. She can feel the dizziness down to her toes. All over, not unilateral. Being still does help, no particular head/body movement is worse for the dizziness, they are all harsh. She had Rx for zpack and pred, completed all but 1 dose on Saturday, never got any relief. 10/23/19: She was sent to emergency department following her acute visit yesterday in office. She has had repeated episodes of disorientation, full body weakness, dizziness. Drake these may have been epileptic neurology has been consulted and started keppra. EEG was ordered and ativan is available PRN. Lumbar puncture has been ordered to rule out concern of leptomeningeal metastasis. Will also order MRI Cervical and Thoracic spine. Patient seen and resting at time of evaluation parents at bedside, status post LP Review of Systems A 14 point review of systems assessed and completed and negative except HPI Past Medical History Past Medical History: Cancer Additional Past Medical History / Comment(s): breast cancer History of Any Multi-Drug Resistant Organisms: None Reported Past Surgical History: No Surgical Hx Reported Additional Past Surgical History / Comment(s): cyst removal Past Anesthesia/Blood Transfusion Reactions: No Reported Reaction Past Psychological History: No Psychological Hx Reported Smoking Status: Former smoker Past Alcohol Use History: None Reported Past Drug Use History: None Reported - Past Family History Mother Family Medical History: Hypertension Father Family Medical History: Myocardial Infarction ([place]) Medications and Allergies Home Medications Medication Instructions Recorded Confirmed Type Butalb/APAP/Caff 50-325-40Mg 1 tab PO Q6H PRN 08/06/19 10/23/19 History [Fioricet 50-325-40] Meclizine HCl 12.5 mg PO TID PRN 10/15/19 10/23/19 History Lidocaine Viscous 2% [Xylocaine 10 ml MUCOUS MEM QID PRN 10/23/19 10/23/19 History Viscous] Loratadine [Claritin] 10 mg PO DAILY PRN 10/23/19 10/23/19 History Ondansetron HCl [Zofran] 4 mg PO Q6H PRN 10/23/19 10/23/19 History Allergies Allergy/AdvReac Type Severity Reaction Status Date / Time Penicillins Allergy Unknown Verified 10/23/19 08:22 Physical Exam Vitals: Vital Signs Temp Pulse Pulse Resp BP BP Pulse Ox 10/23/19 13:26 97.6 F 76 16 125/63 100 10/23/19 13:02 66 17 125/59 100 10/23/19 12:41 59 L 18 119/77 100 10/23/19 12:37 58 L 18 130/78 100 10/23/19 12:32 56 L 18 138/82 100 10/23/19 12:27 97.5 F L 51 L 16 125/80 99 10/23/19 09:33 59 L 16 105/79 97 10/23/19 05:33 98 F 61 17 123/68 96 10/22/19 22:54 97.6 F 92 18 138/86 99 10/22/19 20:08 98.0 F 104 H 18 130/84 95 10/22/19 19:59 97.3 F L 72 18 147/93 100 10/22/19 19:19 86 18 130/82 98 10/22/19 15:19 98.1 F 97 18 131/87 99 Intake and Output 10/22/19 10/23/19 10/23/19 22:59 06:59 14:59 Intake Total 1240 Output Total 3 1 Balance -3 1239 Intake: Intake, IV Titration 660 Amount Sodium Chloride 0.9% 1, 660 000 ml @ 60 mls/hr IV . [id number] PB with Mvi, Adult No.4 with Vit K 10 ml with Thiamine 100 mg with Folic Acid 1 mg Rx#: [id number] Oral 580 Output: Stool 3 1 Other: Voiding Method Bedside Commode Bedside Commode # Voids 3 3 # Bowel Movements 2 Weight 86.183 kg 86.183 kg 86.183 kg - Constitutional General appearance: average body habitus, no acute distress - EENT Equal and reactive at time of evaluation ENT: NA/AT, normal oropharynx - Neck Supple Neck: other - Respiratory Respiratory: bilateral: CTA (No increased respiratory ) - Cardiovascular Rhythm: regular Heart sounds: normal: S1, S2 - Gastrointestinal General gastrointestinal: normal bowel sounds, soft - Integumentary Integumentary: pale - Neurologic Weakness in right arm more than left - Musculoskeletal Musculoskeletal: right sided weakness - Psychiatric Psychiatric: A&O x's 3 Results CBC & Chem 7: 10/23/19 03:14 10/23/19 03:14 Labs: Abnormal Lab Results - Last 24 Hours (Table) 10/22/19 10/22/19 10/22/19 Range/Units 17:45 17:45 17:45 WBC 3.2 L (3.8-10.6) k/uL RBC 3.24 L (3.80-5.40) m/uL Hgb 10.9 L (11.4-16.0) gm/dL Hct 32.9 L (34.0-46.0) % MCV 101.6 H (80.0-100.0) fL RDW 16.5 H (11.5-15.5) % Lymphocytes # 0.6 L (1.0-4.8) k/uL Sodium 136 L (137-145) mmol/L Glucose 172 H (74-99) mg/dL POC Glucose (mg/dL) (75-99) mg/dL Plasma Lactic Acid Baltazar 3.3 H* (0.7-2.0) mmol/L AST 41 H (14-36) U/L ALT 57 H (4-34) U/L Total Protein (6.3-8.2) g/dL 10/23/19 10/23/19 10/23/19 Range/Units 03:14 03:14 03:33 WBC (3.8-10.6) k/uL RBC 2.91 L (3.80-5.40) m/uL Hgb 9.8 L (11.4-16.0) gm/dL Hct 29.6 L (34.0-46.0) % MCV 101.8 H (80.0-100.0) fL RDW 16.8 H (11.5-15.5) % Lymphocytes # (1.0-4.8) k/uL Sodium 136 L (137-145) mmol/L Glucose 122 H (74-99) mg/dL POC Glucose (mg/dL) 139 H (75-99) mg/dL Plasma Lactic Acid Baltazar (0.7-2.0) mmol/L AST (14-36) U/L ALT 46 H (4-34) U/L Total Protein 6.0 L (6.3-8.2) g/dL MRI - head: report reviewed Assessment and Plan Plan: Assessment and Recommendations: 1. Triple negative Breast Cancer with Lymphovascular invasion: - Locally advanced breast cancer, currently on tyra-adjuvant chemotherapy, completed 4 cycles of AC, currently on Taxol weekly with q3week Carboplatin. 2. New Neurological Symptoms (Episodes)/Mental Status Changes: - Started approx a month ago and has progressively became worse - Intermittent - Neurology following, keppra and ativan ordered - EEG in am - Status post MRI, no evidence of metastatic disease - Status Post LP: Awaiting results Thank you for allowing me to take care in this patient we will follow along with you.
[2019-10-23 20:07] LABS: Mononuclear WBC,CSF 100 %; Polynuclear WBC,CSF 0 %
[2019-10-24] MEDS: SODIUM CHLORIDE 0.9% 1,000 ML with MVI, ADULT NO.4 WITH VIT K 10 ML, THIAMINE 100 MG, F... IV SCH ×8 (06:04→21:43)
[2019-10-24 06:26] LABS: Anisocytosis Slight; Basophils % (A) 0 %; Eosinophils # (A) 0.1 k/uL (0-0.7); Eosinophils % (A) 2 %; HCT 26.8 % (34.0-46.0); HGB 8.8 gm/dL (11.4-16.0); Lymphocytes # (A) 1.8 k/uL (1.0-4.8); Lymphocytes % (A) 43 %; MCH 33.8 pg (25.0-35.0); MCHC 32.7 g/dL (31.0-37.0); MCV 103.3 fL (80.0-100.0); Macrocytosis Moderate; Mean Platelet Volume 7.6; Monocytes # (A) 0.2 k/uL (0-1.0); Monocytes % (A) 4 %; Neutrophils % (A) 49 %; Platelet Count 337 k/uL (150-450); RBC 2.59 m/uL (3.80-5.40); WBC 4.1 k/uL (3.8-10.6)
[2019-10-24] MEDS: PANTOPRAZOLE 40 MG/10 ML VIAL IVP SCH ×2 (08:32→20:07)
[2019-10-24] MEDS: MECLIZINE 12.5 MG TAB PO SCH ×2 (08:32→20:07)
[2019-10-24] MEDS ORDERED: levETIRAcetam 500 MG TAB PO SCH (12:30)
--- NOTE | 2019-10-24 15:15 | EEG ---
ELECTROENCEPHALOGRAM REPORT DATE OF PROCEDURE: 10/24/2019 ELECTROENCEPHALOGRAM (EEG) REPORT: TECHNIQUE: A routine 18-channel EEG was performed with video using the 10/20 international electrode placement system. HISTORY: Patient admitted 10/22/19 with intractable vertigo, seizure-like activity and cancer? Patient is currently undergoing chemotherapy. CURRENT MEDICATIONS: Protonix, Ativan, sodium chloride, Antivert, magnesium hydroxide, Narcan. STUDY DURATION: 25 minutes. FINDINGS: BACKGROUND: The background activity consisted of 8-9 Hz rhythmic waveforms symmetrically distributed through both posterior quadrants. ACTIVATION: Hyperventilation: Not performed. Photic stimulation: Symmetric driving seen. Sleep: Stages I and II sleep noted. ABNORMALITIES: None. IMPRESSION: Normal EEG. No epileptiform activity was present. No seizures were recorded. These findings were called to the patient's nurse at 2:34 p.m. on 10/24/2019. MMBEATRISL / IJN: [id number] /
--- NOTE | 2019-10-24 15:30 | PN ---
PROGRESS NOTE DATE OF SERVICE: 10/24/2019 This 39-year-old woman who was admitted with diffuse weakness is being evaluated to rule out leptomeningeal metastasis. The patient also had EEG that did not show an acute abnormality. Dr. Cheema from Neurology is recommending a small dose of Keppra at 500 p.o. b.i.d. No chest pain. No palpitations. No fever. The patient is still weak. PHYSICAL EXAMINATION: Alert and oriented x3. Pulse 76, blood pressure 104/69, respiration 16, temperature 97.9, pulse ox 97% on room air. HEENT: Conjunctivae normal. NECK: No jugular venous distention. CARDIOVASCULAR SYSTEM: S1, S2 muffled. RESPIRATORY SYSTEM: Breath sounds diminished at the bases. No rhonchi. No crackles. ABDOMEN: Soft, non-tender. LEGS: No edema. No swelling. NERVOUS SYSTEM: No focal deficit. LABS: WBC 4.2, hemoglobin is 8.8. CSF noted. Cultures are pending. ASSESSMENT: 1. Diffuse weakness, possibly chemotherapy-related. Rule out polyneuropathy or leptomeningeal metastasis. 2. Possible peripheral neuropathy. 3. Possible acute gastritis. 4. Mild bicytopenia secondary to chemotherapy. 5. Increased mean corpuscular volume. 6. Hyponatremia. 7. Increased AST, ALT. 8. Elevated plasma lactic acid at 3.3 because of dehydration, possibly. 9. History of triple-negative breast cancer, on chemotherapy. 10.History of cyst removal. 11.Remote history of nicotine dependence. 12.Obesity with body mass index of 35.7. 13.FULL CODE. RECOMMENDATIONS AND DISCUSSION: In this 39-year-old woman who presented with multiple complex medical issues, we will monitor the patient closely, continue the current medications, continue symptomatic treatment. Otherwise I would recommend closely following with Neurology, PT/OT evaluation. Increase ambulation. Guarded prognosis. Further recommendations to follow. MMODL / IJN: [id number] /
[2019-10-24] MEDS ORDERED: CYANOCOBALAMIN 1,000 MCG/ML 1 ML VIAL SQ SCH (16:00)
[2019-10-24] MEDS: CYANOCOBALAMIN 1,000 MCG/ML 1 ML VIAL SQ SCH (17:52)
--- NOTE | 2019-10-24 17:58 | P.PN ---
Subjective Progress Note Date: 10/24/19 Principal diagnosis: breast cancer She overall is feeling better today, just weak. Objective - Vital Signs Vital signs: Vital Signs Temp 98.1 F 10/24/19 12:00 Pulse 101 H 10/24/19 12:00 Resp 16 10/24/19 12:00 BP 116/67 10/24/19 12:00 Pulse Ox 97 10/24/19 12:00 Intake & Output 10/23/19 10/24/19 10/24/19 18:59 06:59 18:59 Intake Total 1240 690 480 Output Total 2 Balance 1238 690 480 Weight 86.183 kg Intake: Intake, IV Titration 660 690 480 Amount Sodium Chloride 0.9% 1, 660 690 480 000 ml @ 60 mls/hr IV . [id number] PB with Mvi, Adult No.4 with Vit K 10 ml with Thiamine 100 mg with Folic Acid 1 mg Rx#: [id number] Oral 580 Output: Stool 2 Other: Voiding Method Bedside Commode Bedside Commode Bedside Commode # Voids 3 2 # Bowel Movements 2 - Exam - Constitutional General appearance: average body habitus, no acute distress - EENT Equal and reactive at time of evaluation ENT: NA/AT, normal oropharynx - Neck Supple Neck: other - Respiratory Respiratory: bilateral: CTA (No increased respiratory ) - Cardiovascular Rhythm: regular Heart sounds: normal: S1, S2 - Gastrointestinal General gastrointestinal: normal bowel sounds, soft - Integumentary Integumentary: pale - Neurologic Weakness in right arm more than left - Musculoskeletal Musculoskeletal: right sided weakness - Psychiatric Psychiatric: A&O x's 3 - Labs CBC & Chem 7: 10/24/19 06:16 10/23/19 03:14 Labs: Abnormal Lab Results - Last 24 Hours (Table) 10/23/19 10/24/19 Range/Units 12:45 06:16 RBC 2.59 L (3.80-5.40) m/uL Hgb 8.8 L (11.4-16.0) gm/dL Hct 26.8 L (34.0-46.0) % MCV 103.3 H (80.0-100.0) fL RDW 17.0 H (11.5-15.5) % CSF Tot Nucleated Cells 6 H (0-5) u/L Microbiology - Last 24 Hours (Table) 10/23/19 12:45 CSF Gram Stain - Preliminary Cerebral Spinal Fluid CSF Culture - Preliminary Assessment and Plan Plan: Assessment and Recommendations: 1. Triple negative Breast Cancer with Lymphovascular invasion: - Locally advanced breast cancer, currently on tyra-adjuvant chemotherapy, completed 4 cycles of AC, currently on Taxol weekly with q3week Carboplatin. 2. New Neurological Symptoms (Episodes)/Mental Status Changes: - Started approx a month ago and has progressively became worse - Intermittent - Neurology following, keppra and ativan ordered - EEG today revealed no signs of epileptic activity and Keprra was discontin ued. - Status post MRI, no evidence of metastatic disease - Status Post LP: Awaiting results - If LP negative recommend Optho and ENT may see as outpatient if symptoms controlled - Monitor pain in neck if worsens will obtain MRI neck Thank you for allowing me to take care in this patient we will follow along with you.
[2019-10-24 18:45] LABS: Appearance,Urine Clear (Clear); Bilirubin,Urine Negative (Negative); Blood,Urine Negative (Negative); Color,Urine Light Yellow; Glucose,Urine (UA) Negative (Negative); Ketones,Urine Negative (Negative); Leukocyte Esterase,Urine Negative (Negative); Nitrite,Urine Negative (Negative); PH, Urine 5.5 (5.0-8.0); Protein,Urine Negative (Negative); Specific Gravity,Urine 1.009 (1.001-1.035); Urobilinogen,Urine <2.0 mg/dL (<2.0)
[2019-10-24] MEDS: levETIRAcetam 500 MG TAB PO SCH (20:07)
--- NOTE | 2019-10-25 00:16 | P.CONS ---
History of Present Illness - Reason for Consult Consult date: 10/24/19 abnormal CSF Requesting physician: Krissy Cheema - Chief Complaint seizure x few days - History of Present Illness Patient is a 39-year-old female with a past medical his significant for stage III breast cancer for the patient is currently undergoing chemotherapy since June 2019 patient presenting to [facility] on October 22, 2019 with episode of vertigo that has been going on for almost 1 month patient complaining of room spinning when she stands up in the middle lying flat patient apparently has been complaining of some headache but no significant photophobia or vomiting denies having any fever or any chills patient did have an MRI of the brain completed September currently reported negative for any intracerebral process did show some mastoiditis with the patient continued to different courses of steroids and antibiotic without any improvement apparently the patient seemed to have some perceived activity for the patient has been brought to the hospital on arrival to the hospital the patient has been afebrile and no fever has been reported however the patient has been admitted to hospital patient had did have a slight leukopenia on admission subsequent work-up has been normal electrolytes kidney function has been normal lactic was mildly low to 3.3 urine has been negative patient did have LP completed as a work-up there which was normal glucose of 49 protein was normal at 34 it did show 6 nucleated cells that prompted this infectious disease consultation. Review of Systems Positive point has been mentioned HPI rest of the systems are negative Past Medical History Past Medical History: Cancer Additional Past Medical History / Comment(s): breast cancer History of Any Multi-Drug Resistant Organisms: None Reported Past Surgical History: No Surgical Hx Reported Additional Past Surgical History / Comment(s): cyst removal Past Anesthesia/Blood Transfusion Reactions: No Reported Reaction Past Psychological History: No Psychological Hx Reported Smoking Status: Former smoker Past Alcohol Use History: None Reported Past Drug Use History: None Reported - Past Family History Mother Family Medical History: Hypertension Father Family Medical History: Myocardial Infarction ([place]) Medications and Allergies Home Medications Medication Instructions Recorded Confirmed Type Butalb/APAP/Caff 50-325-40Mg 1 tab PO Q6H PRN 08/06/19 10/23/19 History [Fioricet 50-325-40] Meclizine HCl 12.5 mg PO TID PRN 10/15/19 10/23/19 History Lidocaine Viscous 2% [Xylocaine 10 ml MUCOUS MEM QID PRN 10/23/19 10/23/19 History Viscous] Loratadine [Claritin] 10 mg PO DAILY PRN 10/23/19 10/23/19 History Ondansetron HCl [Zofran] 4 mg PO Q6H PRN 10/23/19 10/23/19 History Allergies Allergy/AdvReac Type Severity Reaction Status Date / Time Penicillins Allergy Unknown Verified 10/23/19 08:22 Physical Exam Vitals: Vital Signs Temp Pulse Resp BP Pulse Ox 10/24/19 20:27 97.5 F L 93 20 126/78 99 10/24/19 12:00 98.1 F 101 H 16 116/67 97 10/24/19 04:23 97.9 F 76 16 104/69 97 Intake and Output 10/24/19 10/24/19 10/25/19 14:59 22:59 06:59 Intake Total 480 210 Output Total 1 Balance 480 209 Intake: Intake, IV Titration 480 210 Amount Sodium Chloride 0.9% 1, 480 210 000 ml @ 60 mls/hr IV . [id number] PB with Mvi, Adult No.4 with Vit K 10 ml with Thiamine 100 mg with Folic Acid 1 mg Rx#: [id number] Output: Stool 1 Other: Voiding Method Bedside Commode Bedside Commode # Voids 2 GENERAL DESCRIPTION: Middle-aged female lying in bed, no distress. No tachypnea or accessory muscle of respiration use. HEENT: Shows Pallor , no scleral icterus. Oral mucous membrane is dry. No pharyngeal erythema or thrush NECK: Trachea central, no thyromegaly. LUNGS: Unlabored breathing. Clear to auscultation anteriorly. No wheeze or crackle. HEART: S1, S2, regular rate and rhythm. No loud murmur ABDOMEN: Soft, no tenderness , guarding or rigidity, no organomegaly EXTREMITIES: No edema of feet. SKIN: No rash, no masses palpable. NEUROLOGICAL: The patient is awake, alert, oriented x3, mood and affect normal Results CBC & Chem 7: 10/24/19 06:16 10/23/19 03:14 Labs: Abnormal Lab Results - Last 24 Hours (Table) 10/24/19 Range/Units 06:16 RBC 2.59 L (3.80-5.40) m/uL Hgb 8.8 L (11.4-16.0) gm/dL Hct 26.8 L (34.0-46.0) % MCV 103.3 H (80.0-100.0) fL RDW 17.0 H (11.5-15.5) % Microbiology - Last 24 Hours (Table) 10/23/19 12:45 CSF Gram Stain - Preliminary Cerebral Spinal Fluid CSF Culture - Preliminary Assessment and Plan Assessment: patient with mild abnormal CSF which did show 6 WBC, 0-5 being normal in this patient who did have a normal glucose and protein no fever or elevated white count will go against meningitis in this patient who did have a history of stage III breast cancer possible metastatic spread to the meninges and causing some inflammation may account for that elevated white count rather than infectious etiology. (1) High cerebrospinal fluid leukocyte count Current Visit: Yes Status: Acute Code(s): R83.8 - OTHER ABNORMAL FINDINGS IN CEREBROSPINAL FLUID SNOMED Code(s): 037919611 Plan: 1-we will request cytology on the CSF that has already been collected 2-no need for systemic antibiotic therapy We will follow on clinical condition and cultures to further adjust medication if needed Thank you for this consultation will follow this patient along with you Time with Patient: Greater than 30
[2019-10-25] MEDS: Acetaminophen-Codeine 300-30mg TAB PO PRN ×2 (01:45→18:56)
[2019-10-25 07:51] LABS: Anisocytosis Slight; Basophils % (A) 0 %; Eosinophils % (A) 1 %; HCT 25.7 % (34.0-46.0); HGB 8.4 gm/dL (11.4-16.0); Lymphocytes # (A) 1.5 k/uL (1.0-4.8); Lymphocytes % (A) 45 %; MCH 33.7 pg (25.0-35.0); MCHC 32.8 g/dL (31.0-37.0); MCV 102.8 fL (80.0-100.0); Macrocytosis Moderate; Mean Platelet Volume 7.6; Monocytes # (A) 0.1 k/uL (0-1.0); Monocytes % (A) 4 %; Neutrophils # (A) 1.5 k/uL (1.3-7.7); Neutrophils % (A) 46 %; Platelet Count 313 k/uL (150-450); WBC 3.2 k/uL (3.8-10.6)
[2019-10-25] MEDS: PANTOPRAZOLE 40 MG/10 ML VIAL IVP SCH ×2 (08:59→19:59)
[2019-10-25] MEDS: MECLIZINE 12.5 MG TAB PO SCH ×2 (08:59→19:59)
[2019-10-25] MEDS: levETIRAcetam 500 MG TAB PO SCH ×2 (08:59→19:59)
[2019-10-25] MEDS: SODIUM CHLORIDE 0.9% 1,000 ML with MVI, ADULT NO.4 WITH VIT K 10 ML, THIAMINE 100 MG, F... IV SCH ×4 (15:49)
[2019-10-25] MEDS: CYANOCOBALAMIN 1,000 MCG/ML 1 ML VIAL SQ SCH (17:27)
--- NOTE | 2019-10-25 18:09 | PN ---
PROGRESS NOTE DATE OF SERVICE: 10/25/2019 This 39-year-old woman admitted with diffuse weakness also had multiple neurological abnormal findings. The patient also has peripheral neuropathy. The patient also had an episode of staring also. The EEG did not show any acute abnormality. Neurology recommended a small dose of Keppra. No chest pain. No palpitations. No fever. PHYSICAL EXAMINATION: Alert and oriented x3. Pulse is 87, blood pressure 124/60, respiration 14, temperature 98 degrees, pulse ox 98% on room air. HEENT: Conjunctivae normal. Oral mucosa moist. NECK: No jugular venous distention. No lymph node enlargement. CARDIOVASCULAR: S1, S2. RESPIRATORY: Diminished breath sounds at the bases. Scattered rhonchi. ABDOMEN: Soft, nontender. LEGS: No edema, no swelling. NERVOUS SYSTEM: Mild diffuse weakness. No focal motor deficits. LAB: WBC 3, hemoglobin is 8.4, platelets are 313. CSF cytology awaited. ASSESSMENT: 1. Diffuse weakness possibly chemotherapy related polyneuropathy or leptomeningeal metastasis. 2. Possible peripheral neuropathy. 3. Status post lumbar puncture. 4. Possible acute gastritis. 5. Mild bicytopenia secondary to chemotherapy. 6. Increased MCV. 7. Hyponatremia. 8. Increased AST, ALT. 9. Elevated plasma lactic acid at 3.3 because of dehydration possibly. 10.History of triple negative breast cancer on chemotherapy. 11.History of cyst removal. 12.Remote history of nicotine dependence. 13.Obesity with body mass index of 35.7. 14.FULL CODE. RECOMMENDATIONS AND DISCUSSION: Recommend to continue current medications, continue to monitor, symptomatic treatment. Otherwise, repeat labs, increase ambulation, PT/OT evaluation. Otherwise, await neurology determination tomorrow. Further recommendations to follow. MMODL / IJN: [id number] /
--- NOTE | 2019-10-25 18:26 | P.PN ---
Subjective Progress Note Date: 10/25/19 Principal diagnosis: breast cancer She appears to be improving with less neurological episodes daily, remains on keppra. Awaiting cytology from LP CSF. She complains of her tongue feeling "hariry and coated" mild thrush noted. She also stated her neck is hurting more today, unknown if musculoskeletal. Objective - Vital Signs Vital signs: Vital Signs Temp 98.0 F 10/25/19 11:40 Pulse 87 10/25/19 11:40 Resp 14 10/25/19 11:40 BP 125/69 10/25/19 11:40 Pulse Ox 99 10/25/19 11:40 Intake & Output 10/24/19 10/25/19 10/25/19 18:59 06:59 18:59 Intake Total 480 210 480 Output Total 1 Balance 480 209 480 Intake: Intake, IV Titration 480 210 480 Amount Sodium Chloride 0.9% 1, 480 210 480 000 ml @ 60 mls/hr IV . [id number] PB with Mvi, Adult No.4 with Vit K 10 ml with Thiamine 100 mg with Folic Acid 1 mg Rx#: [id number] Output: Stool 1 Other: Voiding Method Bedside Commode Bedside Commode Bedside Commode # Voids 2 1 3 - Exam - Constitutional General appearance: average body habitus, no acute distress - EENT Equal and reactive at time of evaluation ENT: NA/AT, normal oropharynx - Neck Supple Neck: other - Respiratory Respiratory: bilateral: CTA (No increased respiratory ) - Cardiovascular Rhythm: regular Heart sounds: normal: S1, S2 - Gastrointestinal General gastrointestinal: normal bowel sounds, soft - Integumentary Integumentary: pale - Neurologic Weakness in right arm more than left - Musculoskeletal Musculoskeletal: right sided weakness - Psychiatric Psychiatric: A&O x's 3 - Labs CBC & Chem 7: 10/25/19 07:30 10/23/19 03:14 Labs: Abnormal Lab Results - Last 24 Hours (Table) 10/25/19 Range/Units 07:30 WBC 3.2 L (3.8-10.6) k/uL RBC 2.50 L (3.80-5.40) m/uL Hgb 8.4 L (11.4-16.0) gm/dL Hct 25.7 L (34.0-46.0) % MCV 102.8 H (80.0-100.0) fL RDW 17.0 H (11.5-15.5) % Microbiology - Last 24 Hours (Table) 10/23/19 12:45 CSF Gram Stain - Preliminary Cerebral Spinal Fluid CSF Culture - Preliminary Assessment and Plan Plan: Assessment and Recommendations: 1. Triple negative Breast Cancer with Lymphovascular invasion: - Locally advanced breast cancer, currently on tyra-adjuvant chemotherapy, completed 4 cycles of AC, currently on Taxol weekly with q3week Carboplatin. 2. New Neurological Symptoms (Episodes)/Mental Status Changes:improving - Started approx a month ago and has progressively became worse. - Her presentation does not fall in line with an adverse effect to treatment with carboplatin or taxol, other etiologies must be considered - Intermittent episodes - Changes in vision - recently diagnosed with ocular migraines, recommend follow-up as outpatient with opthomology - Neurology following, keppra and ativan ordered - EEG today revealed no signs of epileptic activity and Keprra was lowered and continued. - Status post MRI, no evidence of metastatic disease: If persists recommend Repeat - Status Post LP: Awaiting results of cytology - If LP negative recommend Optho and ENT may see as outpatient if symptoms controlled - Monitor pain in neck if worsens will obtain MRI neck 3. Normocytic Anemia: - B12 mild decrease and B12 x5 days sub cut ordered in the picture of neurological changes benefit outweigh risks - Stable 8.4, secondary to chemotherapy treatment - CBC in AM - Transfusion support less than 7 Diflucan po 100mg for thrush x5 days MRI neck ordered for complaints of neck pain worsening She is still unable to ambuilate without assistance without feeling dizziness Ava Pan, HAL
[2019-10-25] MEDS ORDERED: FLUCONAZOLE 100 MG TAB PO SCH (21:00)
[2019-10-25 21:25] VITALS: RESP 16
[2019-10-26] MEDS: Acetaminophen-Codeine 300-30mg TAB PO PRN (05:20)
[2019-10-26 06:27] LABS: Anisocytosis Slight; Basophils % (A) 0 %; Eosinophils % (A) 1 %; HCT 25.7 % (34.0-46.0); HGB 8.6 gm/dL (11.4-16.0); Lymphocytes # (A) 1.4 k/uL (1.0-4.8); Lymphocytes % (A) 50 %; MCH 35.1 pg (25.0-35.0); MCHC 33.5 g/dL (31.0-37.0); MCV 104.8 fL (80.0-100.0); Macrocytosis Moderate; Mean Platelet Volume 7.5; Monocytes # (A) 0.1 k/uL (0-1.0); Monocytes % (A) 4 %; Neutrophils # (A) 1.1 k/uL (1.3-7.7); Neutrophils % (A) 43 %; Platelet Count 253 k/uL (150-450); RBC 2.45 m/uL (3.80-5.40); RDW 16.7 % (11.5-15.5); WBC 2.7 k/uL (3.8-10.6)
[2019-10-26 06:35] LABS: ALT 29 U/L (4-34); AST 21 U/L (14-36); African American GFR (CKD) >90 (>60 ml/min/1.73 sqM); Albumin 2.8 g/dL (3.5-5.0); Alkaline Phosphatase 61 U/L (38-126); Anion Gap 4 mmol/L; Blood Urea Nitrogen 9 mg/dL (7-17); Calcium 8.4 mg/dL (8.4-10.2); Carbon Dioxide 29 mmol/L (22-30); Chloride 104 mmol/L (98-107); Glucose 87 mg/dL (74-99); Non-African American GFR(CKD) >90 (>60 ml/min/1.73 sqM); Sodium 137 mmol/L (137-145); Total Bilirubin 0.3 mg/dL (0.2-1.3)
[2019-10-26] MEDS: MECLIZINE 12.5 MG TAB PO SCH (08:01)
[2019-10-26] MEDS: SODIUM CHLORIDE 0.9% 1,000 ML with MVI, ADULT NO.4 WITH VIT K 10 ML, THIAMINE 100 MG, F... IV SCH ×4 (08:01)
[2019-10-26] MEDS: PANTOPRAZOLE 40 MG/10 ML VIAL IVP SCH (08:01)
[2019-10-26] MEDS: levETIRAcetam 500 MG TAB PO SCH (08:01)
--- NOTE | 2019-10-26 09:40 | PN ---
PROGRESS NOTE DATE OF SERVICE: 10/25/2019 REASON FOR FOLLOWUP: Left cyst. INTERVAL HISTORY: The patient is currently afebrile. The patient has been breathing comfortably. The patient denies having any chest pain or cough, having has improved. No guarding, no nausea, no vomiting. No abdominal pain, no diarrhea. PHYSICAL EXAMINATION: Blood pressure 110/64 with a pulse of 80, temperature 97.9. She is 100% on room air. General description is a middle-aged female, lying in bed in no distress. RESPIRATORY SYSTEM: Unlabored breathing, clear to auscultation anteriorly. HEART: S1, S2. Regular rate and rhythm. ABDOMEN: Soft, no tenderness. LABS: Hemoglobin 8.4, white count 3.2, BUN of 11, creatinine 0.70. The cyst has fluid, cytology currently pending. DIAGNOSTIC IMPRESSION AND PLAN: Patient with very mild congestive heart failure, with subsequent white count of 26 with normal glucose and protein. Clinically doubt infectious etiology. Concern for possible multiple related to her malignancy with cytology currently pending. No need for any systemic antibiotic. Continue supportive care. MMODL / IJN: [id number] /
--- NOTE | 2019-10-26 10:31 | MR ---
EXAMINATION TYPE: MR cervical spine wo/w con DATE OF EXAM: 10/26/2019 COMPARISON: None HISTORY: Dizziness/pain TECHNIQUE: Multiplanar, multisequence images of the cervical spine were acquired utilizing 7.5 mL intravenous Ga davist gadolinium contrast. Diffusion weighted imaging was performed. C2-C3: No evidence for degenerative disc disease. No disc bulge/herniation or protrusion. No Canal stenosis. Foramina are patent bilaterally. C3-C4: No evidence for degenerative disc disease. No disc bulge/herniation or protrusion. No Canal stenosis. Foramina are patent bilaterally. C4-C5: No evidence for degenerative disc disease. No disc bulge/herniation or protrusion. No Canal stenosis. Foramina are patent bilaterally. C5-C6: Posterior extension endplate disc complex effaces the anterior thecal sac, uncovertebral joint hypertrophy encroaches on the bilateral neural foramina. No significant spinal stenosis. C6-C7: Posterior extension of endplate disc complex causes anterior mass effect on the thecal sac, as ymmetric appearance causes anterolateral mass effect on the thecal sac greater towards the left. Unco vertebral joint hypertrophy encroaches somewhat on the neural foramina. No significant spinal stenosi s. C7-T1: No evidence for degenerative disc disease. No disc bulge/herniation or protrusion. No Canal stenosis. Foramina are patent bilaterally. Cervical segments are intact. There is normal alignment. Cervical spinal cord is of normal signal. There is multilevel spondylosis. Some loss of disc height signal is present at C5-6, C6-7. Craniovert ebral junction relationships are within normal limits. Inflammatory changes noted within the left ma xillary sinus. No abnormal enhancement following contrast administration. IMPRESSION: Degenerative disc disease, foraminal encroachment. No significant spinal stenosis. Sinus disease.
[2019-10-26 12:27] VITALS: BP 128/83; PULSE 82; TEMP 98
--- NOTE | 2019-10-26 15:58 | PN ---
PROGRESS NOTE DATE OF SERVICE: 10/26/2019. REASON FOR FOLLOWUP: Positive white count concerning for infection. INTERVAL HISTORY: The patient was seen on rounds this morning. The patient has been afebrile. Denies having any headache. No chest pain, shortness of breath or cough. No abdominal pain or diarrhea. PHYSICAL EXAMINATION: Blood pressure is 132/83 with a pulse of 82, temperature 98. She is 97% on room air. General description is a young female up in the bed in no distress. RESPIRATORY SYSTEM: Unlabored breathing. Clear to auscultation anteriorly. HEART: S1, S2. Regular rate and rhythm. ABDOMEN: Soft. No tenderness. LABS: CSF culture remains negative. CSF cytology is pending. Cervical spine MRI: degenerative disc disease. DIAGNOSTIC IMPRESSION AND PLAN: Patient with mildly elevated white count malignancy. Clinically doubt meningitis negative. No need for antibiotic on discharge. Follow up on the cytology. MMODL / IJN: [id number] /
--- NOTE | 2019-10-26 23:35 | DS ---
DISCHARGE SUMMARY FINAL DIAGNOSES: 1. 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 2. Possible peripheral neuropathy. 3. Possible seizure disorder. 4. Status post lumbar puncture. 5. Possible acute gastritis. 6. Mild bicytopenia secondary to chemotherapy. 7. Increased mean corpuscular volume. 8. Hyponatremia. 9. Increased AST, ALT. 10.Elevated lactic acid at 3.3 because of dehydration, possibly. 11.History of triple-negative breast cancer and chemotherapy. 12.History of cyst removal. 13.Remote history of nicotine dependence. 14.Obesity with body mass index of 34.6. 15.FULL CODE. DISCHARGE DISPOSITION: The patient will be discharged in stable condition with guarded prognosis. HISTORY OF PRESENT ILLNESS: This 39-year-old woman with a past medical history of multiple medical problems was admitted with diffuse weakness, possibly secondary to chemotherapy. Patient was treated symptomatically and patient improved significantly. Lumbar puncture was done, sent for cytology to rule out the possibility of leptomeningeal metastasis. On exam, vitals are stable. CARDIOVASCULAR SYSTEM: S1, S2 muffled. ABDOMEN: Soft. NERVOUS SYSTEM: No focal deficit. Neurology saw the patient. EEG and empiric Keppra were initiated. I would recommend that the patient follow up with Neurology and Hematology/Oncology as an outpatient as well. DISCHARGE ADVICE AND MEDICATIONS: 1. Cardiac diet. 2. Activity limited until followup. 3. Follow up with Dr. Araya in 2-3 days. 4. Follow up with Neurology as recommended. 5. Follow with Hematology/Oncology as recommended. 6. Claritin 10 mg daily. 7. Fioricet p.r.n. 8. Meclizine 12.5 mg q. p.r.n. 9. Lidocaine p.r.n. 10.Zofran 4 mg p.r.n. 11.Folic acid 1 mg daily. 12.Keppra 500 mg p.o. b.i.d. 13.Multivitamins 1 p.o. daily. 14.Thiamine 100 mg p.o. daily. MMODL / IJN: [id number] / MTDD
== END 2019-10-26 14:10 | disposition home or self-care (01) | DRG 74 ==
LOC: EC 14:51 → 5NMEDONC 20:43 → OBSVTOIN 10-23 15:34 → 5NMEDONC 10-23 22:27
PROVIDERS: ADMIT Hospitalist; ATTEND Hospitalist
PROC: 009U3ZX Drainage of Spinal Canal, Percutaneous Approach, Diagnostic (ICD-10-PCS; principal; 2019-10-23)
DX: G62.0 Drug-induced polyneuropathy (principal); B37.0 Candidal stomatitis; C79.49 Secondary malignant neoplasm of other parts of nervous system; E87.1 Hypo-osmolality and hyponatremia; E87.2 Acidosis; T45.1X5A Adverse effect of antineoplastic and immunosuppressive drugs, initial encounter; C50.919 Malignant neoplasm of unspecified site of unspecified female breast; D70.1 Agranulocytosis secondary to cancer chemotherapy; E66.9 Obesity, unspecified; E86.0 Dehydration; H70.91 Unspecified mastoiditis, right ear; I50.9 Heart failure, unspecified; Z17.1 Estrogen receptor negative status [ER-]; Z68.35 Body mass index [BMI] 35.0-35.9, adult; Z82.49 Family history of ischemic heart disease and other diseases of the circulatory system; Z87.891 Personal history of nicotine dependence; Z79.899 Other long term (current) drug therapy; Z88.0 Allergy status to penicillin; G40.909 Epilepsy, unspecified, not intractable, without status epilepticus; K29.00 Acute gastritis without bleeding; R74.0 Nonspecific elevation of levels of transaminase and lactic acid dehydrogenase [LDH]
CPT/HCPCS: 36415; 62328; 70496; 70498; 72156; 80053; 81003; 82607; 82746; 82945; 83605; 84157; 84484; 84703; 85025; 86300; 87070; 87205; 88108; 89050; 93005; 95819; 96361; 96374; 96375; 96376; 99285

== ENCOUNTER → 2019-10-26 | Outpatient (CLI) | payer OTHER | END | disposition home or self-care (01) | DX: D64.9 Anemia, unspecified (principal) | CPT/HCPCS: 36415; 80048; 85025 ==